=== PATIENT | male | born 1985 | race Caucasian/White ===

== ENCOUNTER 2023-03-25 13:25 | Outpatient (CLI) | payer OTHER | END 2023-03-25 13:26 | disposition home or self-care (01) | LOC: CSHCP 13:25 | PROVIDERS: ATTEND Internal Medicine Critical Care Medicine | DX: R05.3 Chronic cough (principal) | CPT/HCPCS: 94060; 94726; 94729; 94760 ==

== ENCOUNTER 2024-12-21 08:42 | Outpatient (CLI) | payer OTHER, SELFPAY | END 2024-12-21 08:43 | disposition home or self-care (01) | LOC: CSHSLEEP 08:42 | PROVIDERS: ATTEND Internal Medicine Critical Care Medicine | DX: G47.33 Obstructive sleep apnea (adult) (pediatric) (principal); R53.83 Other fatigue; R06.83 Snoring | CPT/HCPCS: 95800 ==